=== PATIENT | female | born 1935 | race Caucasian/White ===

== ENCOUNTER → 2018-02-21 | Outpatient (CLI) | payer MEDICARE ==
[~2018-02-21] MED LIST: ADULT LOW DOSE81 MG PO; HYDROCHLOROTH12.5 M1 PO; LEVOXYL50 MCG PO; PREMARIN0.3 MG PO
--- NOTE | 2018-02-21 12:30 | Diagnostic Imaging Report ---
PROCEDURE: L-SPINE COMPLETE COMPARISON: None. INDICATIONS: LOW BACK PAIN FINDINGS: There are 6 non rib-bearing lumbar vertebral body segments. Minimal degenerative spurring. The lumbar spine is in anatomic alignment without evidence of fracture, spondylolisthesis or spondylolysis. No compressed vertebral body segments. Vertebral body heights and disc spaces are maintained. The paraspinal soft tissues are normal. Calcification within the spleen. CONCLUSION: No acute bony abnormality with minimal degenerative spurring. Konrad Diaz D.O. Dictated by: Konrad Diaz D.O. on 02/21/2018 at 12:39 Electronically approved by: Konrad Diaz D.O. on 02/21/2018 at 12:39
== END ==
LOC: RAD 08:36
PROVIDERS: ATTEND Internal Medicine
DX: M54.5 Low back pain (principal)
CPT/HCPCS: 72110

== ENCOUNTER → 2019-03-04 | Outpatient (CLI) | payer MEDICARE ==
--- NOTE | 2019-03-04 08:28 | Diagnostic Imaging Report ---
EXAMINATION: Renal ultrasound. CLINICAL HISTORY :Microscopic hematuria COMPARISON: <None available.> TECHNIQUE: Grayscale and color Doppler evaluation of the kidneys and bladder was performed in transverse and longitudinal planes. DISCUSSION: RIGHT KIDNEY: The right kidney measures 11.2 cm in length and shows normal cortical echogenicity. No hydronephrosis, shadowing calculi or solid mass lesions. LEFT KIDNEY: The left kidney measures 11.8 cm in length and shows normal cortical echogenicity. No hydronephrosis, shadowing calculi or solid mass lesions. BLADDER: Unremarkable. Right and left ureteral jets are identified. IMPRESSION: Unremarkable sonographic appearance of the kidneys. Signed by: Dr. Tyrel Spears M.D. on 03/04/2019 8:25 AM
== END ==
LOC: US 07:36
PROVIDERS: ATTEND Urology
DX: R31.21 Asymptomatic microscopic hematuria (principal)
CPT/HCPCS: 76770

== ENCOUNTER → 2022-08-03 | Outpatient (CLI) | payer MEDICARE ==
[~2022-08-03] MED LIST changes: +IOPAMIDOL 370 MG/ML 100 ML INFUS..BTL INJ ONE
[2022-08-03 10:02] LABS: CREATININE, SERUM 0.91 mg/dL (0.57-1.11)
== END ==
LOC: CT 09:20
PROVIDERS: ATTEND Nurse Practitioner
DX: R10.11 Right upper quadrant pain (principal); R19.00 Intra-abdominal and pelvic swelling, mass and lump, unspecified site
CPT/HCPCS: 36415; 74160; 82565; 84520; Q9967

== ENCOUNTER → 2024-01-09 | Outpatient (REF) | payer BC, MEDICARE ==
[~2024-01-09] MED LIST changes: -IOPAMIDOL 370 MG/ML 100 ML INFUS..BTL INJ ONE
== END ==
LOC: RAD 11:59
PROVIDERS: ATTEND Physician Assistant
DX: M54.50 Low back pain, unspecified (principal)
CPT/HCPCS: 72110

== ENCOUNTER → 2024-07-24 | Outpatient (REF) | payer MEDICARE | LOC: DX 12:16 | PROVIDERS: ATTEND Physician Assistant Medical | DX: M85.88 Other specified disorders of bone density and structure, other site (principal); N95.8 Other specified menopausal and perimenopausal disorders | CPT/HCPCS: 77080 ==